=== PATIENT | female | born 1955 | race African-American/Black ===

== ENCOUNTER 2018-01-06 16:06 | Inpatient (IN) | payer MEDICAID ==
[~2018-01-06] VITALS: Ht 165.1 cm; Wt 89.4 kg
[2018-01-06 16:51] LABS: Basophils # (auto) 0 uL; Basophils % (auto) 0.5 % (0.0-2.0); Eosinophils # (auto) 0.2 uL; Eosinophils % (auto) 2.7 % (0.0-7.0); Hematocrit 40.4 % (36.0-46.0); Hemoglobin 13.8 g/dL (12.2-16.2); Lymphocytes # (auto) 1.5 uL; Lymphocytes % (auto) 20.9 % (10.0-50.0); Mean Corpuscular Hemoglobin 33.4 pg (28.0-32.0); Mean Corpuscular Hgb Conc. 34.1 g/dL (32.0-36.0); Mean Corpuscular Volume 97.9 fL (80.0-100.0); Monocytes # (auto) 0.5 uL; Monocytes % (auto) 6.9 % (0.0-12.0); Neutrophils # (auto) 5.1 uL; Nucleated Red Blood Cells % 0.1 %; Platelet Count (auto) 196 10^3/uL (140-450); Red Blood Cells 4.12 10^6/uL (4.0-5.20); Red Cell Distribution Width 13.9 % (11.8-14.3); White Blood Cell 7.3 10^3/uL (4.4-10.8)
[2018-01-06 17:15] LABS: Alanine Aminotransferase 22 U/L (13-56); Albumin 3.5 g/dL (3.4-5.0); Alkaline Phosphatase 132 U/L (45-117); Anion Gap 9 (5-15); Aspartate Aminotransferase 15 U/L (15-37); BUN/Creatinine Ratio 12.2; Bilirubin, Total 0.3 mg/dL (0.2-1.0); Blood Urea Nitrogen 11 mg/dL (7-18); Calcium 8.2 mg/dL (8.5-10.1); Carbon Dioxide 27 mmol/L (21-32); Chloride 106 mmol/L (98-107); GFR African American 82 mL/min; GFR Non-African American 67 mL/min; Glucose 102 mg/dL (74-106); Magnesium 2.5 mg/dL (1.6-2.6); Sodium 142 mmol/L (136-145); Total Protein 7.3 g/dL (6.4-8.2)
[2018-01-06 17:25] LABS: INR 0.95 (0.9-1.15); Partial Thromboplastin Time 24.9 sec (22.64-33.71); Prothrombin Time 10.3 sec (9.37-12.3)
[2018-01-06] MEDS ORDERED: SODIUM CHLORIDE 0.9% 1,000 ML IV ONE (18:09)
[2018-01-06] MEDS ORDERED: ALBUTEROL SULF 2.5 MG/0.5ML(0.5%) NEB SOLN HHN ONE (18:15)
[2018-01-06] MEDS ORDERED: methylPREDNISolone SOD SUCC 125 MG/2 ML VL IV ONE (18:15)
[2018-01-06] MEDS ORDERED: IPRATROPIUM BROM 0.5 MG/2.5ML INH SOL HHN ONE (18:15)
[2018-01-06] MEDS ORDERED: OSELTAMIVIR 75 MG CAP PO ONE ×2 (18:30→18:45)
[2018-01-06] MEDS: SODIUM CHLORIDE 0.9% 1,000 ML IV SCH (18:37)
[2018-01-06] MEDS ORDERED: LACTULOSE 20Gm/30ML SOLN PO PRN (18:45)
[2018-01-06] MEDS ORDERED: HYDROcodone-ACET 5/325MG TAB PO PRN (18:45)
[2018-01-06] MEDS ORDERED: PROMETHAZINE HCL 25 MG/ML 1ML IV PRN (18:45)
[2018-01-06] MEDS ORDERED: NITROGLYCERIN 0.4 MG SL TAB SL PRN (18:45)
[2018-01-06] MEDS ORDERED: ALBUTEROL SULF 2.5 MG/0.5ML(0.5%) NEB SOLN NEB PRN (18:45)
[2018-01-06] MEDS ORDERED: MORPHINE SULFATE 4 MG/ML SYR/VIAL IV PRN ×2 (18:45)
[2018-01-06] MEDS: DOXYCYCLINE HYC 100MG/250ML 250 ML IV SCH (19:05)
[2018-01-06 19:32] VITALS: BP 132/95
[2018-01-06 21:15] VITALS: BP 131/86
[2018-01-06] MEDS: ATORVASTATIN 20 MG TAB PO SCH (22:00)
[2018-01-06] MEDS: methylPREDNISolone SOD SUCC 40 MG/ML VL IV SCH (23:40)
[2018-01-06] MEDS: TEMAZEPAM 15 MG CAP PO PRN (23:42)
[2018-01-06] MEDS: IPRATROPIUM BROM 0.5 MG/2.5ML INH SOL NEB SCH (23:44)
[2018-01-06] MEDS: ALBUTEROL SULF 2.5 MG/0.5ML(0.5%) NEB SOLN NEB SCH (23:45)
[2018-01-07] MEDS ORDERED: NEBI5TAB2 PO (03:30)
[2018-01-07] MEDS ORDERED: AML5T PO (03:30)
[2018-01-07] MEDS ORDERED: TRAM50TA2 PO (03:31)
[2018-01-07 05:00] VITALS: BP 133/72
[2018-01-07 05:59] LABS: Cholesterol 158 mg/dL (< 200); HDL Cholesterol 76 mg/dL (40-59); LDL Cholesterol 80 mg/dL (< 100); Triglycerides 29 mg/dL (< 150)
[2018-01-07] MEDS: DOXYCYCLINE HYC 100MG/250ML 250 ML IV SCH ×2 (06:14→18:41)
[2018-01-07] MEDS: methylPREDNISolone SOD SUCC 40 MG/ML VL IV SCH ×3 (06:15→22:26)
[2018-01-07] MEDS: ALBUTEROL SULF 2.5 MG/0.5ML(0.5%) NEB SOLN NEB SCH ×4 (07:05→18:53)
[2018-01-07] MEDS: IPRATROPIUM BROM 0.5 MG/2.5ML INH SOL NEB SCH ×4 (07:05→18:53)
[2018-01-07 09:00] VITALS: BP 120/88
[2018-01-07] MEDS: NITROGLYCERIN 0.2MG/HR TOPICAL PATCH TD SCH (10:00)
[2018-01-07] MEDS ORDERED: OSELTAMIVIR 75 MG CAP PO SCH (10:00)
[2018-01-07] MEDS: SODIUM CHLORIDE 0.9% 1,000 ML IV SCH ×2 (10:21→23:36)
[2018-01-07] MEDS: ASPirin 81 mg TAB PO SCH (10:22)
[2018-01-07] MEDS: PANTOPRAZOLE 40 MG TAB PO SCH (10:23)
[2018-01-07] MEDS: ENOXAPARIN SOD 40 MG/0.4 ML SYRINGE SC SCH (10:23)
[2018-01-07 13:00] VITALS: BP 124/77
[2018-01-07 16:06] LABS: Alcohol, Urine < 3.0 mg/dL (0-5); Amphetamine Screen, Urine NEGATIVE (NEGATIVE); Barbiturate Scree,Urine NEGATIVE (NEGATIVE); Benzodiazephine Screen, Urine NEGATIVE (NEGATIVE); Cannabinoid Screen, Urine NEGATIVE (NEGATIVE); Cocaine Screen, Urine NEGATIVE (NEGATIVE); Opiate Scree,Urine NEGATIVE (NEGATIVE); Phencyclidine Screen, Urine NEGATIVE (NEGATIVE)
[2018-01-07] MEDS ORDERED: amLODIPine BESYLATE 5 MG TAB PO ONE (17:30)
[2018-01-07] MEDS: BYSTOLIC 5MG PO SCH (17:35)
[2018-01-07] MEDS: ACETAMINOPHEN 500 MG TAB PO PRN (17:46)
[2018-01-07 17:58] VITALS: BP 140/72
[2018-01-07] MEDS ORDERED: guaiFENesin 200 MG/10 ML UD GT PRN (18:00)
[2018-01-07] MEDS ORDERED: DOCUSATE SOD 100 MG CAP PO PRN ×2 (18:00→18:15)
[2018-01-07] MEDS: guaiFENesin 200 MG/10 ML UD PO PRN (18:42)
[2018-01-07 22:12] VITALS: BP 137/70
[2018-01-07] MEDS: ATORVASTATIN 20 MG TAB PO SCH (22:26)
[2018-01-07] MEDS: TEMAZEPAM 15 MG CAP PO PRN (23:00)
[2018-01-08 04:42] VITALS: BP 135/78
[2018-01-08] MEDS: IPRATROPIUM BROM 0.5 MG/2.5ML INH SOL NEB SCH ×3 (06:14→18:41)
[2018-01-08] MEDS: ALBUTEROL SULF 2.5 MG/0.5ML(0.5%) NEB SOLN NEB SCH ×3 (06:14→18:41)
[2018-01-08] MEDS: methylPREDNISolone SOD SUCC 40 MG/ML VL IV SCH ×2 (06:29→14:00)
[2018-01-08] MEDS: DOXYCYCLINE HYC 100MG/250ML 250 ML IV SCH ×2 (06:30→18:53)
[2018-01-08 09:00] VITALS: BP 118/74
[2018-01-08] MEDS: NITROGLYCERIN 0.2MG/HR TOPICAL PATCH TD SCH (10:00)
[2018-01-08] MEDS: amLODIPine BESYLATE 5 MG TAB PO SCH (10:00)
[2018-01-08] MEDS: BYSTOLIC 5MG PO SCH (10:00)
[2018-01-08] MEDS: ASPirin 81 mg TAB PO SCH (10:35)
[2018-01-08] MEDS: PANTOPRAZOLE 40 MG TAB PO SCH (10:36)
[2018-01-08] MEDS: ENOXAPARIN SOD 40 MG/0.4 ML SYRINGE SC SCH (10:36)
[2018-01-08] MEDS: SODIUM CHLORIDE 0.9% 1,000 ML IV SCH (10:37)
[2018-01-08 13:00] VITALS: BP 126/95
[2018-01-08 17:54] VITALS: BP 139/107
[2018-01-08 21:47] VITALS: BP 151/82
[2018-01-08] MEDS: ATORVASTATIN 20 MG TAB PO SCH (21:48)
[2018-01-08] MEDS: TEMAZEPAM 15 MG CAP PO PRN (21:51)
[2018-01-09] MEDS: SODIUM CHLORIDE 0.9% 1,000 ML IV SCH (00:57)
[2018-01-09] MEDS: methylPREDNISolone SOD SUCC 40 MG/ML VL IV SCH ×5 (00:57→23:36)
[2018-01-09 05:13] VITALS: BP 133/73
[2018-01-09] MEDS: DOXYCYCLINE 100 MG TAB/CAP PO SCH ×2 (06:47→18:51)
[2018-01-09] MEDS: IPRATROPIUM BROM 0.5 MG/2.5ML INH SOL NEB SCH ×4 (06:56→19:23)
[2018-01-09] MEDS: ALBUTEROL SULF 2.5 MG/0.5ML(0.5%) NEB SOLN NEB SCH ×4 (06:57→19:23)
[2018-01-09 09:00] VITALS: BP 150/87
[2018-01-09] MEDS: ASPirin 81 mg TAB PO SCH (10:00)
[2018-01-09] MEDS: PANTOPRAZOLE 40 MG TAB PO SCH (10:00)
[2018-01-09] MEDS: amLODIPine BESYLATE 5 MG TAB PO SCH ×2 (10:00→11:15)
[2018-01-09] MEDS: BYSTOLIC 5MG PO SCH (10:00)
[2018-01-09] MEDS: NITROGLYCERIN 0.2MG/HR TOPICAL PATCH TD SCH (10:00)
[2018-01-09] MEDS: ENOXAPARIN SOD 40 MG/0.4 ML SYRINGE SC SCH (11:15)
[2018-01-09 12:00] VITALS: BP 150/78
[2018-01-09] MEDS: LORazepam 0.5 MG TAB PO PRN (12:18)
[2018-01-09 17:00] VITALS: BP 164/82
[2018-01-09 20:23] VITALS: BP 164/82
[2018-01-09 22:00] VITALS: BP 145/84
[2018-01-09] MEDS: ATORVASTATIN 20 MG TAB PO SCH (22:00)
[2018-01-09] MEDS: TEMAZEPAM 15 MG CAP PO PRN (22:16)
[2018-01-10 05:00] VITALS: BP 126/71
[2018-01-10] MEDS: methylPREDNISolone SOD SUCC 40 MG/ML VL IV SCH ×4 (06:35→18:00)
[2018-01-10] MEDS: DOXYCYCLINE 100 MG TAB/CAP PO SCH ×2 (06:35→19:00)
[2018-01-10] MEDS: ALBUTEROL SULF 2.5 MG/0.5ML(0.5%) NEB SOLN NEB SCH ×4 (06:44→18:58)
[2018-01-10] MEDS: IPRATROPIUM BROM 0.5 MG/2.5ML INH SOL NEB SCH ×4 (06:44→18:58)
[2018-01-10 08:00] VITALS: BP 132/79
[2018-01-10] MEDS ORDERED: ADENOSINE 76 MG in GIVE UN-DILUTED 0 ML IV STA (08:04)
[2018-01-10 08:29] VITALS: BP 126/74
[2018-01-10] MEDS: BYSTOLIC 5MG PO SCH (10:00)
[2018-01-10] MEDS: NITROGLYCERIN 0.2MG/HR TOPICAL PATCH TD SCH (10:00)
[2018-01-10] MEDS: PANTOPRAZOLE 40 MG TAB PO SCH (10:31)
[2018-01-10] MEDS: ASPirin 81 mg TAB PO SCH (10:31)
[2018-01-10] MEDS: ENOXAPARIN SOD 40 MG/0.4 ML SYRINGE SC SCH (10:32)
[2018-01-10] MEDS: amLODIPine BESYLATE 5 MG TAB PO SCH (10:32)
[2018-01-10 12:23] VITALS: BP 144/77
[2018-01-10 16:19] VITALS: BP 129/89
[2018-01-10] MEDS: BUDESONIDE (INHALATION) 0.5 MG/2 ML NEB NEB SCH (18:57)
[2018-01-10 22:00] VITALS: BP 125/62
[2018-01-10] MEDS: ATORVASTATIN 20 MG TAB PO SCH (22:00)
[2018-01-11 04:58] VITALS: BP 136/69
[2018-01-11] MEDS: methylPREDNISolone SOD SUCC 40 MG/ML VL IV SCH ×4 (05:30→17:36)
[2018-01-11] MEDS: DOXYCYCLINE 100 MG TAB/CAP PO SCH ×2 (06:34→18:41)
[2018-01-11] MEDS: ALBUTEROL SULF 2.5 MG/0.5ML(0.5%) NEB SOLN NEB SCH ×4 (06:35→19:50)
[2018-01-11] MEDS: IPRATROPIUM BROM 0.5 MG/2.5ML INH SOL NEB SCH ×4 (06:35→19:50)
[2018-01-11 09:00] VITALS: BP 146/78
[2018-01-11] MEDS: BUDESONIDE (INHALATION) 0.5 MG/2 ML NEB NEB SCH ×2 (09:57→19:50)
[2018-01-11] MEDS: BYSTOLIC 5MG PO SCH (10:00)
[2018-01-11] MEDS: NITROGLYCERIN 0.2MG/HR TOPICAL PATCH TD SCH (10:24)
[2018-01-11] MEDS: PANTOPRAZOLE 40 MG TAB PO SCH (10:26)
[2018-01-11] MEDS: ASPirin 81 mg TAB PO SCH (10:26)
[2018-01-11] MEDS: amLODIPine BESYLATE 5 MG TAB PO SCH (10:26)
[2018-01-11] MEDS: ENOXAPARIN SOD 40 MG/0.4 ML SYRINGE SC SCH (10:27)
[2018-01-11 13:19] VITALS: BP 121/59
[2018-01-11 17:00] VITALS: BP 130/77
[2018-01-11 22:00] VITALS: BP 124/67
[2018-01-11] MEDS: guaiFENesin 200 MG/10 ML UD PO PRN (22:09)
[2018-01-11] MEDS: ATORVASTATIN 20 MG TAB PO SCH (22:09)
[2018-01-11] MEDS: LORazepam 0.5 MG TAB PO PRN (22:09)
[2018-01-12 05:00] VITALS: BP 140/71
[2018-01-12] MEDS: IPRATROPIUM BROM 0.5 MG/2.5ML INH SOL NEB SCH ×3 (06:06→13:46)
[2018-01-12] MEDS: ALBUTEROL SULF 2.5 MG/0.5ML(0.5%) NEB SOLN NEB SCH ×3 (06:06→13:46)
[2018-01-12] MEDS: BUDESONIDE (INHALATION) 0.5 MG/2 ML NEB NEB SCH (06:07)
[2018-01-12] MEDS: methylPREDNISolone SOD SUCC 40 MG/ML VL IV SCH ×3 (06:08→12:00)
[2018-01-12] MEDS: DOXYCYCLINE 100 MG TAB/CAP PO SCH (06:08)
[2018-01-12] MEDS: ACETAMINOPHEN 500 MG TAB PO PRN (06:08)
[2018-01-12 08:00] VITALS: BP 157/82
[2018-01-12] MEDS: BYSTOLIC 5MG PO SCH (10:00)
[2018-01-12] MEDS ORDERED: PHENYLEPHRINE HCL 0.5 % NASAL SPRAY 15ML PRN (10:15)
[2018-01-12] MEDS: PANTOPRAZOLE 40 MG TAB PO SCH (10:39)
[2018-01-12] MEDS: ASPirin 81 mg TAB PO SCH (10:39)
[2018-01-12] MEDS: amLODIPine BESYLATE 5 MG TAB PO SCH (10:40)
[2018-01-12] MEDS: ENOXAPARIN SOD 40 MG/0.4 ML SYRINGE SC SCH (10:40)
[2018-01-12] MEDS: NITROGLYCERIN 0.2MG/HR TOPICAL PATCH TD SCH (10:41)
[2018-01-12 12:00] VITALS: BP 131/72
[2018-01-12 12:12] VITALS: BP 157/82
== END 2018-01-12 17:35 | disposition home or self-care (01) | DRG 140 ==
LOC: ER 16:10 → TELE 16:11 → TELE-CENTR 21:06 → CENTRAL 01-11 03:45
PROVIDERS: ADMIT Internal Medicine; ATTEND Internal Medicine Pulmonary Disease
DX: J44.1 Chronic obstructive pulmonary disease with (acute) exacerbation (principal); I20.0 Unstable angina; I10 Essential (primary) hypertension; F17.210 Nicotine dependence, cigarettes, uncomplicated; J22 Unspecified acute lower respiratory infection; F41.9 Anxiety disorder, unspecified; I70.0 Atherosclerosis of aorta; J45.51 Severe persistent asthma with (acute) exacerbation; Z86.73 Personal history of transient ischemic attack (TIA), and cerebral infarction without residual deficits; Z90.710 Acquired absence of both cervix and uterus; Z88.8 Allergy status to other drugs, medicaments and biological substances
CPT/HCPCS: 36415; 71046; 80053; 80061; 80307; 82550; 83735; 84443; 84484; 85025; 85379; 85610; 85652; 85730; 86141; 87070; 87205; 87804; 93005; 93017; 93306; 94640; 94761; 96361; 96374; J0153; J3490

== ENCOUNTER 2020-01-15 09:23 | Emergency (ER) | payer OTHER ==
[~2020-01-15] VITALS: Ht 165.1 cm; Wt 86.2 kg
[~2020-01-15 09:23] MED LIST: AML5T PO; NEBI5TAB2 PO; TRAM50TA2 PO
[2020-01-15] MEDS ORDERED: methylPREDNISolone SOD SUCC 125 MG/2 ML VL IM ONE (10:30)
[2020-01-15] MEDS ORDERED: ALBUTEROL SULF 2.5 MG/0.5ML(0.5%) NEB SOLN NEB ONE (10:30)
[2020-01-15] MEDS ORDERED: IPRATROPIUM BROM 0.5 MG/2.5ML INH SOL NEB ONE (10:30)
[2020-01-15 11:22] VITALS: BP 108/69
== END 2020-01-15 11:30 | disposition home or self-care (01) ==
LOC: ER 09:23 → EDBD 09:23 → ER 11:30
DX: J40 Bronchitis, not specified as acute or chronic (principal); J44.9 Chronic obstructive pulmonary disease, unspecified; I10 Essential (primary) hypertension; F17.210 Nicotine dependence, cigarettes, uncomplicated; Z90.710 Acquired absence of both cervix and uterus; Z86.73 Personal history of transient ischemic attack (TIA), and cerebral infarction without residual deficits
CPT/HCPCS: 71046; 93005; 94640; 96372; 99283; J2930; J7644

== ENCOUNTER 2022-06-04 06:57 | Inpatient (IN) | payer OTHER ==
[~2022-06-04] VITALS: Ht 165.1 cm; Wt 95.2 kg
[2022-06-04 09:15] LABS: Basophils # (auto) 0.1 10 ^3/uL (0-0.2); Basophils % (auto) 0.9 % (0.0-2.0); Eosinophils # (auto) 0.1 10 ^3/uL (0-0.8); Eosinophils % (auto) 1.5 % (0.0-7.0); Hemoglobin 14.5 g/dL (12.2-16.2); Lymphocytes # (auto) 2.6 10 ^3/uL (0.4-5.4); Lymphocytes % (auto) 31.3 % (10.0-50.0); Mean Corpuscular Hemoglobin 31.8 pg (28.0-32.0); Mean Corpuscular Hgb Conc. 33.7 g/dL (32.0-36.0); Mean Corpuscular Volume 94.2 fL (80.0-100.0); Monocytes # (auto) 0.3 10 ^3/uL (0-1.3); Monocytes % (auto) 3.5 % (0.0-12.0); Neutrophils # (auto) 5.2 10 ^3/uL (1.6-8.6); Neutrophils % (auto) 62.8 % (37.0-80.0); Nucleated Red Blood Cells % 0.2 %; Red Blood Cells 4.56 10^6/uL (4.0-5.20); Red Cell Distribution Width 14.2 % (11.8-14.3); White Blood Cell 8.2 10^3/uL (4.4-10.8)
[2022-06-04 10:05] LABS: Chloride 109 mmol/L (98-107); Potassium 4.5 mmol/L (3.5-5.1); Sodium 142 mmol/L (136-145)
[2022-06-04 10:06] LABS: Alanine Aminotransferase 34 U/L (13-56); Albumin 3.7 g/dL (3.4-5.0); Alkaline Phosphatase 128 U/L (45-117); Anion Gap 12 (5-15); Aspartate Aminotransferase 40 U/L (15-37); BUN/Creatinine Ratio 23.7; Bilirubin, Total 0.5 mg/dL (0.2-1.0); Blood Urea Nitrogen 14 mg/dL (7-18); Carbon Dioxide 21 mmol/L (21-32); GFR African American 131 mL/min; GFR Non-African American 108 mL/min; Glucose 93 mg/dL (74-106); Total Protein 6.9 g/dL (6.4-8.2)
[2022-06-04 10:13] LABS: Calcium < 5.0 mg/dL (8.5-10.1); Magnesium 0.3 mg/dL (1.6-2.6)
[2022-06-04] MEDS ORDERED: KETOROLAC TROMETH 30 MG/ML 1ML VIAL IM ONE (10:15)
[2022-06-04] MEDS ORDERED: CALCIUM GLUC 1,000mg/50ml-NS 50 ML IV ONE (10:30)
[2022-06-04] MEDS: MAGNESIUM SULFATE 1GM/100ML 100 ML IV SCH ×5 (10:30→18:00)
[2022-06-04] MEDS ORDERED: NITROGLYCERIN 0.4 MG SL TAB SL PRN (15:00)
[2022-06-04] MEDS ORDERED: MORPHINE SULFATE INJ 2 MG/ml SYRG IV PRN ×2 (15:00→15:30)
[2022-06-04] MEDS ORDERED: hydrALAZINE HCL 20 MG/ML VL IV PRN (15:30)
[2022-06-04] MEDS ORDERED: NICOTINE 21MG/24 HR TOPICAL PATCH TD ONE (15:30)
[2022-06-04 15:33] LABS: Cholesterol 177 mg/dL (< 200)
[2022-06-04 15:36] LABS: HDL Cholesterol 71 mg/dL (40-59); LDL Cholesterol 96 mg/dL (< 100); Triglycerides 58 mg/dL (< 150)
[2022-06-04 18:56] LABS: Anion Gap 8 (5-15); Blood Urea Nitrogen 15 mg/dL (7-18); Calcium 8.2 mg/dL (8.5-10.1); Carbon Dioxide 25 mmol/L (21-32); Chloride 110 mmol/L (98-107); GFR African American 93 mL/min; GFR Non-African American 77 mL/min; Glucose 149 mg/dL (74-106); Magnesium 3.2 mg/dL (1.6-2.6); Potassium 3.6 mmol/L (3.5-5.1); Sodium 143 mmol/L (136-145)
[2022-06-04 22:02] VITALS: BP 96/68
[2022-06-05 01:10] LABS: BUN/Creatinine Ratio 26.1; Calcium 7.8 mg/dL (8.5-10.1); Magnesium 2.9 mg/dL (1.6-2.6)
[2022-06-05 05:00] VITALS: BP 137/70
[2022-06-05 07:32] LABS: Basophils # (auto) 0.1 10 ^3/uL (0-0.2); Basophils % (auto) 0.9 % (0.0-2.0); Eosinophils # (auto) 0.1 10 ^3/uL (0-0.8); Eosinophils % (auto) 1.8 % (0.0-7.0); Hemoglobin 12.8 g/dL (12.2-16.2); Lymphocytes # (auto) 2.6 10 ^3/uL (0.4-5.4); Lymphocytes % (auto) 34.1 % (10.0-50.0); Mean Corpuscular Hemoglobin 31.5 pg (28.0-32.0); Mean Corpuscular Volume 95.5 fL (80.0-100.0); Monocytes # (auto) 0.3 10 ^3/uL (0-1.3); Monocytes % (auto) 4.2 % (0.0-12.0); Neutrophils # (auto) 4.5 10 ^3/uL (1.6-8.6); Red Blood Cells 4.08 10^6/uL (4.0-5.20); Red Cell Distribution Width 14.4 % (11.8-14.3); White Blood Cell 7.6 10^3/uL (4.4-10.8)
[2022-06-05 07:50] LABS: Albumin 3.1 g/dL (3.4-5.0); Calcium 7.9 mg/dL (8.5-10.1); Magnesium 2.8 mg/dL (1.6-2.6); Potassium 4.3 mmol/L (3.5-5.1)
[2022-06-05 07:55] LABS: BUN/Creatinine Ratio 25.7; Bilirubin, Total 0.3 mg/dL (0.2-1.0); Total Protein 6.3 g/dL (6.4-8.2)
[2022-06-05 09:00] VITALS: BP 134/67
[2022-06-05] MEDS: NICOTINE 21MG/24 HR TOPICAL PATCH TD SCH (10:57)
[2022-06-05] MEDS: ENOXAPARIN SOD 40 MG/0.4 ML SYRINGE SC SCH (10:57)
[2022-06-05 12:17] LABS: BUN/Creatinine Ratio 27.9; Calcium 8.2 mg/dL (8.5-10.1); Magnesium 2.8 mg/dL (1.6-2.6); Potassium 4.5 mmol/L (3.5-5.1)
[2022-06-05 13:00] VITALS: BP 122/62
[2022-06-05 17:00] VITALS: BP 115/59
[2022-06-05 18:53] LABS: BUN/Creatinine Ratio 26.6; Calcium 7.9 mg/dL (8.5-10.1); Magnesium 2.5 mg/dL (1.6-2.6); Potassium 4.1 mmol/L (3.5-5.1)
[2022-06-05 19:19] LABS: Alcohol, Urine < 3.0 mg/dL (0-10); Amphetamine Screen, Urine NEGATIVE (NEGATIVE); Barbiturate Scree,Urine NEGATIVE (NEGATIVE); Benzodiazephine Screen, Urine NEGATIVE (NEGATIVE); Cannabinoid Screen, Urine NEGATIVE (NEGATIVE); Cocaine Screen, Urine NEGATIVE (NEGATIVE); Opiate Scree,Urine NEGATIVE (NEGATIVE); Phencyclidine Screen, Urine NEGATIVE (NEGATIVE)
[2022-06-05 22:00] VITALS: BP 108/52
[2022-06-06 05:00] VITALS: BP 135/69
[2022-06-06 08:39] LABS: Urine WBC None Seen /hpf (0 - 5)
[2022-06-06 08:44] LABS: Urine Bacteria NONE SEEN /hpf (None Seen); Urine Blood Negative /uL (Negative); Urine Specific Gravity 1.012 (1.001-1.035)
[2022-06-06 09:15] VITALS: BP 127/83
[2022-06-06] MEDS: NICOTINE 21MG/24 HR TOPICAL PATCH TD SCH (10:12)
[2022-06-06] MEDS: ENOXAPARIN SOD 40 MG/0.4 ML SYRINGE SC SCH (10:12)
[2022-06-06] MEDS ORDERED: NAPR375T27 PO (10:54)
[2022-06-06] MEDS ORDERED: ASPI1CHW15 PO (10:54)
== END 2022-06-06 11:58 | disposition home or self-care (01) | DRG 948 ==
LOC: ER 06:57 → TELE 15:03 → TELE-CENTR 22:15
PROVIDERS: ADMIT Registered Nurse; ATTEND Family Medicine
DX: R53.1 Weakness (principal); R25.2 Cramp and spasm; M17.11 Unilateral primary osteoarthritis, right knee; F17.210 Nicotine dependence, cigarettes, uncomplicated; F41.9 Anxiety disorder, unspecified; Z20.822 Contact with and (suspected) exposure to COVID-19; M06.9 Rheumatoid arthritis, unspecified; I10 Essential (primary) hypertension; J44.9 Chronic obstructive pulmonary disease, unspecified; Z79.82 Long term (current) use of aspirin; Z86.73 Personal history of transient ischemic attack (TIA), and cerebral infarction without residual deficits; Z90.710 Acquired absence of both cervix and uterus; Z88.8 Allergy status to other drugs, medicaments and biological substances; Z71.6 Tobacco abuse counseling
CPT/HCPCS: 36415; 70450; 70551; 71045; 73562; 80048; 80053; 80061; 80307; 81001; 83036; 83735; 83880; 83970; 84100; 84443; 84484; 85025; 93005; 93306; 93886; 93971; 96365; 96366; 96368; 96372; 97163; 99291; G0378; J1885

== ENCOUNTER 2022-11-02 10:57 | Emergency (ER) | payer OTHER ==
[~2022-11-02] VITALS: Ht 157.5 cm; Wt 84.0 kg
[~2022-11-02 10:57] MED LIST changes: +ASPI1CHW15 PO; +NAPR375T27 PO
[2022-11-02] MEDS ORDERED: HYDROcodone-ACET 10/325MG TAB PO ONE (14:15)
[2022-11-02 17:36] VITALS: BP 158/66
== END 2022-11-02 17:38 | disposition home or self-care (01) ==
LOC: EDBD 10:57 → ER 10:57
DX: M54.2 Cervicalgia (principal); M25.511 Pain in right shoulder; M25.551 Pain in right hip; F41.9 Anxiety disorder, unspecified; J44.9 Chronic obstructive pulmonary disease, unspecified; I10 Essential (primary) hypertension; F17.210 Nicotine dependence, cigarettes, uncomplicated; Z86.73 Personal history of transient ischemic attack (TIA), and cerebral infarction without residual deficits; Z90.710 Acquired absence of both cervix and uterus; Z88.8 Allergy status to other drugs, medicaments and biological substances; V49.40XA Driver injured in collision with unspecified motor vehicles in traffic accident, initial encounter; Y93.89 Activity, other specified; Y92.89 Other specified places as the place of occurrence of the external cause; Y99.8 Other external cause status
CPT/HCPCS: 70450; 71250; 72125; 72192; 73030; 73200; 73560

== ENCOUNTER 2024-01-25 03:38 | Emergency (ER) | payer OTHER ==
[~2024-01-25] VITALS: Ht 162.6 cm; Wt 81.8 kg
[~2024-01-25 03:38] MED LIST changes: +ASPI-736 PO; -ASPI1CHW15 PO; +NAPR-957 PO; -NAPR375T27 PO
[2024-01-25 04:45] LABS: Urine Clarity Clear (Clear); Urine Color Colorless (Yellow); Urine Specific Gravity 1.022 (1.001-1.035)
[2024-01-25 04:46] LABS: Urine Bacteria NONE SEEN /hpf (None Seen); Urine Blood 1+ /uL (Negative); Urine Protein, UAD Negative (Negative); Urine Urobilinogen Normal (Negative); Urine WBC 18 /hpf (0 - 5); Urine pH 5.5 (5.0-8.0)
[2024-01-25 07:51] LABS: Basophils # (auto) 0 10 ^3/uL (0-0.2); Basophils % (auto) 0.4 % (0.0-2.0); Eosinophils # (auto) 0.2 10 ^3/uL (0-0.8); Hematocrit 40.3 % (36.0-46.0); Hemoglobin 13.6 g/dL (12.2-16.2); Lymphocytes # (auto) 3.5 10 ^3/uL (0.4-5.4); Lymphocytes % (auto) 39.9 % (10.0-50.0); Mean Corpuscular Hemoglobin 32.9 pg (28.0-32.0); Mean Corpuscular Hgb Conc. 33.7 g/dL (32.0-36.0); Mean Corpuscular Volume 97.6 fL (80.0-100.0); Monocytes # (auto) 0.4 10 ^3/uL (0-1.3); Monocytes % (auto) 3.9 % (0.0-12.0); Neutrophils # (auto) 4.8 10 ^3/uL (1.6-8.6); Neutrophils % (auto) 53.8 % (37.0-80.0); Nucleated Red Blood Cells % 0.1 %; Red Blood Cells 4.13 10^6/uL (4.0-5.20); Red Cell Distribution Width 13.7 % (11.8-14.3); White Blood Cell 8.9 10^3/uL (4.4-10.8)
[2024-01-25 08:19] LABS: Alanine Aminotransferase 16 U/L (7-40); Albumin 4.5 g/dL (3.2-4.8); Alkaline Phosphatase 142 U/L (46-116); Anion Gap 4 (5-15); Aspartate Aminotransferase 16 U/L (13-40); BUN/Creatinine Ratio 24.6 (10.0-20.0); Blood Urea Nitrogen 17 mg/dL (9-23); Calcium 9.3 mg/dL (8.5-10.1); Carbon Dioxide 28 mmol/L (20-30); Chloride 111 mmol/L (98-107); Glucose 102 mg/dL (74-106); Potassium 4.5 mmol/L (3.5-5.1); Sodium 143 mmol/L (136-145)
[2024-01-25 08:20] LABS: Bilirubin, Total 0.4 mg/dL (0.2-1.0); Total Protein 6.6 g/dL (5.7-8.2)
[2024-01-25 09:16] LABS: Lipase 90 U/L (12-53)
[2024-01-25] MEDS ORDERED: NITR-87 PO (10:42)
[2024-01-25 11:05] VITALS: BP 133/104; TEMP 98
[2024-01-25 11:06] VITALS: PULSE 84; RESP 20; O2SAT 97
== END 2024-01-25 11:08 | disposition home or self-care (01) ==
LOC: ER 03:38
DX: K85.90 Acute pancreatitis without necrosis or infection, unspecified (principal); N39.0 Urinary tract infection, site not specified; N93.9 Abnormal uterine and vaginal bleeding, unspecified; R07.89 Other chest pain; I10 Essential (primary) hypertension; J44.9 Chronic obstructive pulmonary disease, unspecified; F17.210 Nicotine dependence, cigarettes, uncomplicated; Z86.73 Personal history of transient ischemic attack (TIA), and cerebral infarction without residual deficits; Z90.710 Acquired absence of both cervix and uterus; Z79.82 Long term (current) use of aspirin; Z79.899 Other long term (current) drug therapy; Z88.8 Allergy status to other drugs, medicaments and biological substances
CPT/HCPCS: 36415; 71045; 74176; 80053; 81001; 83690; 84484; 85025

== ENCOUNTER 2024-08-01 05:05 | Emergency (ER) | payer OTHER ==
[~2024-08-01] VITALS: Ht 165.1 cm; Wt 83.2 kg
[~2024-08-01 05:05] MED LIST changes: +NEBI5TAB10 PO; -NEBI5TAB2 PO; +NITR-87 PO
[2024-08-01] MEDS: SODIUM CHLORIDE 0.9% 500 ML IVB ONE (08:30)
[2024-08-01 09:03] VITALS: PULSE 67; RESP 18; O2SAT 95
[2024-08-01] MEDS: METOCLOPRAMIDE HCL 5MG/ml INJ 2ml VIAL IV ONE (09:28)
[2024-08-01] MEDS: KETOROLAC TROMETH 30 MG/ML 1ML VIAL IV ONE (09:28)
[2024-08-01] MEDS: DexAMETHasone SOD PHOS 10MG/1ML VIAL INJ IV ONE (09:29)
[2024-08-01 09:41] LABS: Basophils # (auto) 0 10 ^3/uL (0-0.2); Basophils % (auto) 0.2 % (0.0-2.0); Eosinophils # (auto) 0.1 10 ^3/uL (0-0.8); Eosinophils % (auto) 1.4 % (0.0-7.0); Hematocrit 38.2 % (36.0-46.0); Hemoglobin 13.4 g/dL (12.2-16.2); Lymphocytes # (auto) 3.8 10 ^3/uL (0.4-5.4); Lymphocytes % (auto) 37.5 % (10.0-50.0); Mean Corpuscular Hemoglobin 34.3 pg (28.0-32.0); Monocytes # (auto) 0.4 10 ^3/uL (0-1.3); Monocytes % (auto) 4.2 % (0.0-12.0); Neutrophils # (auto) 5.7 10 ^3/uL (1.6-8.6); Neutrophils % (auto) 56.7 % (37.0-80.0); Platelet Count (auto) 208 10^3/uL (140-450); Red Cell Distribution Width 14.5 % (11.8-14.3); White Blood Cell 10.1 10^3/uL (4.4-10.8)
[2024-08-01] MEDS: SODIUM CHLORIDE 0.9% 1,000 ML IV ONE (09:49)
[2024-08-01 10:31] LABS: Alanine Aminotransferase 18 U/L (7-40); Albumin 4.1 g/dL (3.2-4.8); Alkaline Phosphatase 122 U/L (46-116); Anion Gap 9 (5-15); Aspartate Aminotransferase 15 U/L (13-40); BUN/Creatinine Ratio 15.2 (10.0-20.0); Bilirubin, Total 0.3 mg/dL (0.2-1.0); Blood Urea Nitrogen 12 mg/dL (9-23); Calcium 8.9 mg/dL (8.7-10.4); Carbon Dioxide 21 mmol/L (20-30); Chloride 111 mmol/L (98-107); Glucose 127 mg/dL (74-106); Lipase 30 U/L (12-53); Magnesium 2.1 mg/dL (1.6-2.6); Potassium 3.4 mmol/L (3.5-5.1); Sodium 141 mmol/L (136-145); Total Protein 6.5 g/dL (5.7-8.2)
[2024-08-01] MEDS ORDERED: DEX4T PO (10:50)
[2024-08-01] MEDS ORDERED: CYCL-839 PO (10:50)
[2024-08-01] MEDS ORDERED: HYDR-4902 PO (10:50)
[2024-08-01 11:11] VITALS: BP 126/61; PULSE 71; RESP 18; TEMP 97.8; O2SAT 95
== END 2024-08-01 11:21 | disposition home or self-care (01) ==
LOC: ER 05:05
DX: M54.16 Radiculopathy, lumbar region (principal); G89.29 Other chronic pain; M54.50 Low back pain, unspecified; I10 Essential (primary) hypertension; F41.9 Anxiety disorder, unspecified; J44.9 Chronic obstructive pulmonary disease, unspecified; F17.210 Nicotine dependence, cigarettes, uncomplicated; Z86.73 Personal history of transient ischemic attack (TIA), and cerebral infarction without residual deficits; Z98.890 Other specified postprocedural states; Z88.8 Allergy status to other drugs, medicaments and biological substances; Z79.899 Other long term (current) drug therapy
CPT/HCPCS: 36415; 71046; 72131; 80053; 83690; 83735; 85025; 93971; 96361; 96374; 96375; 99285; J1100; J1885; J2765; J7030